=== PATIENT | female | born 1970 | race Caucasian/White ===

== ENCOUNTER 2019-08-03 13:22 | Outpatient (CLI) | payer BC ==
--- NOTE | 2019-08-03 14:18 | RAD ---
LEFT THUMB RADIOGRAPHS THREE VIEWS: 08/03/2019 PROVIDED CLINICAL HISTORY: Chronic pain. FINDINGS: No evidence for fracture or other acute osseous abnormality. First CMC degenerative changes are seen. Alignment appears anatomic. Joint spaces appear otherwise preserved. IMPRESSION: First carpometacarpal degenerative change. POS: [facility]
== END 2019-08-03 13:23 | disposition home or self-care (01) ==
LOC: MADRAD 13:22
PROVIDERS: ATTEND Orthopaedic Surgery
DX: M79.645 Pain in left finger(s) (principal); M19.042 Primary osteoarthritis, left hand